=== PATIENT | female | born 1940 | race Caucasian/White ===

== ENCOUNTER 2016-11-12 10:00 | Outpatient (RCR) | payer OTHER | END 2016-12-01 | disposition home or self-care (01) | LOC: PTY 10:00 | DX: R53.1 Weakness (principal); E11.9 Type 2 diabetes mellitus without complications; I10 Essential (primary) hypertension; M19.90 Unspecified osteoarthritis, unspecified site; Z86.73 Personal history of transient ischemic attack (TIA), and cerebral infarction without residual deficits ==

== ENCOUNTER 2016-12-07 09:59 | Outpatient (RCR) | payer OTHER | END 2016-12-31 | disposition home or self-care (01) | LOC: EDSEX 09:59 → PTY 09:59 | DX: R53.1 Weakness (principal); M19.90 Unspecified osteoarthritis, unspecified site; Z86.73 Personal history of transient ischemic attack (TIA), and cerebral infarction without residual deficits; I10 Essential (primary) hypertension; E11.9 Type 2 diabetes mellitus without complications ==

== ENCOUNTER 2017-01-06 10:00 | Outpatient (RCR) | payer OTHER | END 2017-01-31 | disposition home or self-care (01) | LOC: PTY 10:00 | DX: R53.1 Weakness (principal); M19.90 Unspecified osteoarthritis, unspecified site; Z86.73 Personal history of transient ischemic attack (TIA), and cerebral infarction without residual deficits; I10 Essential (primary) hypertension; E11.9 Type 2 diabetes mellitus without complications ==